=== PATIENT | male | born 1960 | race Asian ===

== ENCOUNTER 2022-09-21 03:17 | Inpatient (IN) | payer OTHER ==
[2022-09-21 05:04] VITALS: BMI 20.7
[2022-09-21] MEDS ORDERED: Morphine 2 MG/ML VIAL SLOW IVP PRN (05:04)
[2022-09-21] MEDS ORDERED: Ondansetron ODT 4 MG TAB SL PRN (05:15)
[2022-09-21] MEDS ORDERED: Ondansetron PF 4 MG/2 ML Vial IVP PRN ×2 (05:15→06:04)
[2022-09-21] MEDS ORDERED: Acetaminophen 325 MG TAB PO PRN (05:15)
[2022-09-21] MEDS ORDERED: traMADol HCl 50 MG TAB PO PRN (06:00)
[2022-09-21] MEDS ORDERED: Cyclobenzaprine 10 MG TAB PO PRN (06:00)
[2022-09-21] MEDS ORDERED: hydrALAZINE 20 MG/ML VIAL SLOW IVP PRN (06:04)
[2022-09-21] MEDS ORDERED: Ipratropium/Albuterol 3 ML NEB NEB PRN (06:04)
[2022-09-21] MEDS ORDERED: Ondansetron ODT 4 MG TAB PO PRN (06:04)
[2022-09-21] MEDS ORDERED: Dextrose 5% in Water 1,000 ML IV PRN (06:04)
[2022-09-21] MEDS ORDERED: Dextrose 50% Abboject 50 ML SYRINGE SLOW IVP PRN (06:04)
[2022-09-21] MEDS ORDERED: Sodium Chloride 0.9% 1,000 ML IV SCH (06:15)
[2022-09-21] MEDS: traMADol HCl 50 MG TAB PO SCH ×2 (06:25→12:01)
[2022-09-21] MEDS: Gabapentin 100 MG CAP PO SCH ×2 (06:26→15:36)
[2022-09-21] MEDS: Acetaminophen 500 MG TAB PO SCH ×2 (06:26→12:01)
[2022-09-21] MEDS: Ketorolac Tromethamine 30 MG/ML VIAL IVP SCH ×2 (06:30→12:02)
[2022-09-21 07:34] LABS: #Lymphocytes 1.3 thou/uL (1.20-3.40); #Monocytes 0.7 thou/uL (0.11-0.59); %Basophils 0.2 % (0.0-1.0); %Eosinophils 0.4 % (0.0-10.0); %Lymphocytes 18.2 % (21.0-51.0); %Monocytes 9.5 % (0.0-10.0); %Neutrophils 71.7 % (42.0-75.0); Mean Corpuscular HGB CONC 34.4 g/dL (32.0-36.0); Mean Corpuscular Hemoglobin 29.4 pg (27.0-31.0); Mean Corpuscular Volume 85.3 fl (78.0-98.0); Mean Platelet Volume 8.8 fL (7.4-10.4); Platelet Count 160 10x3/uL (130-400); RBC Distribution Width 11.8 % (11.5-14.5); Red Blood Cell (RBC) Count 4.75 mill/uL (4.70-6.10); White Blood Cell (WBC) Count 6.9 10x3/uL (4.8-10.8)
[2022-09-21 07:51] LABS: Anion Gap 9 mmol/L (10-20); BUN (Urea Nitrogen) 19 mg/dL (8.4-25.7); Calc. Creatinine Clearance 91 mL/min (70-130); Carbon Dioxide 28 mmol/L (23-31); Chloride 105 mmol/L (98-107); Estimated GFR 101; Glucose 107 mg/dL (80-115); Magnesium 1.9 mg/dL (1.6-2.6); Phosphorus 3.8 mg/dL (2.3-4.7); Potassium 4.1 mmol/L (3.5-5.1); Sodium 138 mmol/L (136-145)
[2022-09-21] MEDS ORDERED: Senokot S 8.6-50 MG TAB PO SCH (09:00)
[2022-09-21] MEDS ORDERED: Famotidine 20 MG TAB PO SCH (09:00)
[2022-09-21] MEDS ORDERED: Polyethylene Glycol 3350 17 GM Packet PO SCH (09:00)
[2022-09-21 12:56] VITALS: BP 124/80; TEMP 98.2
[2022-09-21] MEDS ORDERED: Atorvastatin Calcium 10 MG TAB PO SCH (21:00)
== END 2022-09-21 17:00 | disposition home or self-care (01) | DRG 552 ==
LOC: SURG B 03:17
PROVIDERS: ADMIT Specialist; ATTEND Specialist
DX: S32.011A Stable burst fracture of first lumbar vertebra, initial encounter for closed fracture (principal); S22.31XA Fracture of one rib, right side, initial encounter for closed fracture; S32.028A Other fracture of second lumbar vertebra, initial encounter for closed fracture; S32.038A Other fracture of third lumbar vertebra, initial encounter for closed fracture; E78.00 Pure hypercholesterolemia, unspecified; G89.11 Acute pain due to trauma; Z79.899 Other long term (current) drug therapy; V48.5XXA Car driver injured in noncollision transport accident in traffic accident, initial encounter
CPT/HCPCS: 36415; 72131; 83735; 84100; J1885; J2272

== ENCOUNTER 2022-10-12 10:59 | Outpatient (CLI) | payer OTHER | END 2022-10-12 11:00 | disposition home or self-care (01) | LOC: TBSIIMAG 10:59 | PROVIDERS: ATTEND Neurological Surgery | DX: S32.011D Stable burst fracture of first lumbar vertebra, subsequent encounter for fracture with routine healing (principal); M48.8X6 Other specified spondylopathies, lumbar region | CPT/HCPCS: 72100 ==